=== PATIENT | female | born 1980 | race Caucasian/White ===

== ENCOUNTER 2020-10-17 09:15 | Outpatient (CLI) | payer OTHER | END 2020-10-17 09:35 | disposition home or self-care (01) | LOC: RX STUDY 09:15 | PROVIDERS: ATTEND Obstetrics & Gynecology | DX: N84.0 Polyp of corpus uteri (principal); N97.1 Female infertility of tubal origin; N97.8 Female infertility of other origin; Z87.59 Personal history of other complications of pregnancy, childbirth and the puerperium ==

== ENCOUNTER 2020-11-18 10:15 | Outpatient (CLI) | payer OTHER | END 2020-11-18 10:37 | disposition home or self-care (01) | LOC: SONOGRAMA 10:15 → MAMO-SONO 14:30 | PROVIDERS: ATTEND Obstetrics & Gynecology | DX: N84.0 Polyp of corpus uteri (principal); N97.1 Female infertility of tubal origin; D25.1 Intramural leiomyoma of uterus ==